=== PATIENT | male | born 1970 | race Caucasian/White ===

== ENCOUNTER 2021-11-28 12:17 | Emergency (ER) | payer OTHER | END 2021-11-28 15:14 | disposition home or self-care (01) | LOC: FER 12:17 | DX: S01.451A Open bite of right cheek and temporomandibular area, initial encounter (principal); F17.210 Nicotine dependence, cigarettes, uncomplicated; Z23 Encounter for immunization; Z28.310 Unvaccinated for COVID-19; W55.51XA Bitten by raccoon, initial encounter; Y93.89 Activity, other specified; Y92.009 Unspecified place in unspecified non-institutional (private) residence as the place of occurrence of the external cause | CPT/HCPCS: 90375; 90471; 90675; 96372; 99283 ==